=== PATIENT | female | born 1975 | race Hispanic/Latino ===

== ENCOUNTER 2021-02-07 22:32 | Emergency (ER) | payer SELFPAY ==
[2021-02-07] MEDS ORDERED: Ibuprofen 200 MG TAB ONE (23:31)
[2021-02-08 16:19] LABS: SARS-CoV-2 PCR by NAA Not Detected (NotDetected)
== END 2021-02-07 23:59 | disposition left against medical advice (07) ==
LOC: BURERS 22:32
DX: B34.9 Viral infection, unspecified (principal); J02.9 Acute pharyngitis, unspecified; Z20.822 Contact with and (suspected) exposure to COVID-19; I10 Essential (primary) hypertension; E11.9 Type 2 diabetes mellitus without complications
CPT/HCPCS: 87081; 87430; 87804; 99283; U0003; U0005